=== PATIENT | female | born 1990 | race Caucasian/White ===

== ENCOUNTER 2020-08-20 08:20 | Outpatient (CLI) | payer OTHER, SELFPAY | END 2020-08-20 08:21 | disposition home or self-care (01) | LOC: ANHCOVIDVC 08:20 | PROVIDERS: PCP Physician Assistant | DX: Z23 Encounter for immunization (principal) | CPT/HCPCS: 0001A; 91300 ==

== ENCOUNTER 2020-09-10 08:16 | Outpatient (CLI) | payer OTHER, SELFPAY | END 2020-09-10 08:17 | LOC: ANHCOVIDVC 08:16 | PROVIDERS: PCP Physician Assistant | DX: Z23 Encounter for immunization (principal) | CPT/HCPCS: 0002A; 91300 ==

== ENCOUNTER 2020-11-25 07:52 | Outpatient (CLI) | payer OTHER, SELFPAY | END 2020-11-25 07:53 | disposition home or self-care (01) | LOC: ANHAUDIO 07:56 | PROVIDERS: Visit Provider Nurse Practitioner Family | DX: R42 Dizziness and giddiness (principal); H90.3 Sensorineural hearing loss, bilateral | CPT/HCPCS: 92537; 92540; 92546; 92557; 92567 ==

== ENCOUNTER 2021-01-20 12:17 | Outpatient (RCR) | payer OTHER, SELFPAY ==
--- NOTE | 2021-01-20 13:44 | PTOPEVAL ---
PHYSICAL THERAPY EVALUATION Thank you for referring Giovana Woods to [facility].? 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 I will follow up via phone in 1 week to see how she is doing. Self corrective technique was given as well as 24 hour precautions following Micky maneuver. If further skilled PT is needed will formulate a plan of care and forward it to you. I agree with the above. Referring Physician Date Admitting Provider: Attending Provider: Hugh Barber, [employer] DEVELOPER Referring Provider: *PT Outpatient Evaluation Start: 01/20/21 12:38 Freq: Status: Active Protocol: Document 01/20/21 12:35 PRAVIN (Rec: 01/20/21 13:44 PRAVIN [id number]) Therapy Assessment Status Assessment Status Assessment Status Evaluation Outpatient Past Medical History Past Medical History Source of Past Medical History Patient Musculoskeletal History Hx Fractures Yes: L wrist, L shoulder, L foot Endocrine History Hx Hypothyroidism Yes Integumentary History Hx Cellulitis Yes: dog bite 2014 - R forearm Reproductive History Hx Other Reproductive Disorders Yes: D & C 07/2018 Evaluation Information Problem Diagnosis Dizziness and giddiness Onset 2015 Subjective Information Initially went to lie down on Query Text:As Reported By Patient/ floor - room started to spin. Family Would have episodes every so often back then - but now frequency is increasing. Now when having these episodes - will occur with bending over picking up something too quickly, lying in bed - head in a certain position - will have whoosing episode - room will spin, will have a heat wave type of event - hot flash , instantly nausea Prior Level of Function Activity Level (Last 3 Months) Occupation nanny Hand Dominance Right Medications Home Meds (Include: OTC, RX, Vitamins, levothyroxine, Herbals, Dose, Route,and Frequency) vitamins, metformin - to help Query Text:Home Med Entries Will No with weight, Vitamin D, Longer Recall From Past Visits. Home Meclazine - prn - did not take Meds Must Be Re-entered With Each Visit. today Home Setting Home Type Single Level Environmental Barriers Stairs, Threshold Living Situation With Spouse Mobility Assistive Devices (Used Last 3 None Months) Comments Additional Prior Level of Fu
--- NOTE | 2021-01-29 08:43 | PCPTNOTE ---
Follow up phone call made - no dizziness since eval on 01/20/21. Will d/c from PT.
== END 2021-04-06 08:55 | disposition home or self-care (01) ==
LOC: ANHPT 12:17
PROVIDERS: Visit Provider Nurse Practitioner Family
DX: R42 Dizziness and giddiness (principal)
CPT/HCPCS: 97161